=== PATIENT | female | born 1945 | race Caucasian/White ===

== ENCOUNTER → 2017-08-08 | Outpatient (CLI) | payer OTHER, MEDICAID | LOC: FIMAGING 12:47 | PROVIDERS: ATTEND Family Medicine | DX: Z12.31 Encounter for screening mammogram for malignant neoplasm of breast (principal); Z80.3 Family history of malignant neoplasm of breast | CPT/HCPCS: G0202 ==

== ENCOUNTER → 2018-03-06 | Outpatient (CLI) | payer OTHER, MEDICAID | LOC: CIMAGING 11:32 | PROVIDERS: ATTEND Orthopaedic Surgery | DX: Z01.818 Encounter for other preprocedural examination (principal); M17.11 Unilateral primary osteoarthritis, right knee ==

== ENCOUNTER 2018-04-05 06:34 | Observation (INO) | payer OTHER, MEDICAID ==
[~2018-04-05 06:34] MED LIST: ROPIVACAINE 0.2% 80 MG, EPINEPHrine 0.2 MG, KETOROLAC TROMETHAMINE 30 MG in SYRINGE 0 ML IU ONE; TRANEXAMIC ACID 3,000 MG in NS (SYRINGE) 50 ML IRR ONE
--- NOTE | 2018-04-05 07:09 | PDHPUP ---
History & Physical Update H&P update statement: This history and physical update is based on an assessment of the patient which was completed after admission or registration (within 24 hours), but prior to the surgery/procedure. H&P update: H&P reviewed & patient examined, no change in patient's condition since H&P completed
[2018-04-05] MEDS ORDERED: DEXAMETHASONE 4 MG/ML VIAL IVP ONE (07:11)
[2018-04-05] MEDS ORDERED: FAMOTIDINE 20 MG TAB PO ONE (07:11)
[2018-04-05] MEDS ORDERED: ceFAZolin 2 GM/DEXTROSE 100 ML IV ONE (07:11)
[2018-04-05] MEDS ORDERED: ACETAMINOPHEN 325 MG TAB PO ONE (07:11)
[2018-04-05] MEDS ORDERED: LIDOCAINE 1% 2 ML INJ ID PRN (07:12)
[2018-04-05] MEDS ORDERED: LR 1,000 ML IV ONE (07:12)
[2018-04-05] MEDS ORDERED: TRANEXAMIC ACID 3,000 MG/50 ML BAG IRR ONE (08:09)
[2018-04-05] MEDS ORDERED: PROPOFOL/EMULSION 500 MG/50 ML BOTTLE IV ONE (09:28)
[2018-04-05] MEDS ORDERED: MIDAZOLAM 2 MG/2 ML VIAL ONE (09:28)
[2018-04-05] MEDS ORDERED: fentaNYL 100 MCG/2 ML INJ ONE (09:28)
[2018-04-05] MEDS ORDERED: METOCLOPRAMIDE 10 MG/2 ML VIAL IVP PRN (09:58)
[2018-04-05] MEDS ORDERED: ONDANSETRON DISINTEGRATING 4 MG TAB PO PRN (09:58)
[2018-04-05] MEDS ORDERED: TEMAZEPAM 15 MG CAP PO PRN (09:58)
[2018-04-05] MEDS ORDERED: LACTULOSE 20 GM/30 ML UDCUP PO PRN (09:58)
[2018-04-05] MEDS ORDERED: PROMETHAZINE HCL 25 MG/ML INJ IVP PRN ×2 (09:58→11:43)
[2018-04-05] MEDS ORDERED: PROMETHAZINE HCL 25 MG SUPPR PR PRN (09:58)
[2018-04-05] MEDS ORDERED: BISACODYL 10 MG SUPP PR PRN (09:58)
[2018-04-05] MEDS ORDERED: POLYETHYLENE GLYCOL 3350 17 GM PKT PO PRN (09:58)
[2018-04-05] MEDS ORDERED: MAGNESIUM HYDROXIDE 30 ML UDCUP PO PRN (09:58)
[2018-04-05] MEDS ORDERED: ONDANSETRON 4 MG/2 ML VIAL IVP PRN ×2 (09:58→11:43)
[2018-04-05] MEDS ORDERED: DIPHENOXYLATE/ATROPINE LOMOTIL 1 TAB PO PRN (09:58)
[2018-04-05] MEDS ORDERED: diphenhydrAMINE 25 MG CAP PO PRN (09:58)
--- NOTE | 2018-04-05 09:59 | PDANEPAE ---
ANE Past Medical History - Cardiovascular History Hx Hypertension: Yes Hx Arrhythmias: No Hx Chest Pain: No Hx Coronary Artery / Peripheral Vascular Disease: No Hx CHF / Valvular Disease: No Hx Palpitations: No Cardiovascular History Comment: HYPERLIPIDEMIA - Pulmonary History Hx COPD: No Hx Asthma/Reactive Airway Disease: No Hx Recent Upper Respiratory Infection: No Hx Oxygen in Use at Home: No Hx Sleep Apnea: No Sleep Apnea Screening Result - Last Documented: Negative - Neurologic History Hx Cerebrovascular Accident: No Hx Seizures: No Hx Dementia: No - Endocrine History Hx Diabetes: No - Renal History Hx Renal Disorders: No Renal History Comment: URGE INCONT. PREV KIDNEY STONE - Liver History Hx Hepatic Disorders: Yes Hepatic History Comment: CHOLECYSTECTOMY - Neurological & Psychiatric Hx Hx Neurological and Psychiatric Disorders: Yes Neurological / Psychiatric History Comment: DEPRESSION - Cancer History Hx Cancer: Yes Cancer History Comment: CERVIX - Congenital Disorder History Hx Congenital Disorders: No - GI History Hx Gastrointestinal Disorders: Yes Gastrointestinal History Comment: GERD - Other Health History Other Health History: NEG - Chronic Pain History Chronic Pain: Yes (ARTHRITIS KNEES & HANDS) - Surgical History Prior Surgeries: COLON RESECTION. COLOSTOMY. CHOLECYSTECTOMY ANE Review of Systems Review of Systems: - Exercise capacity METS (RN): 4 METS ANE Patient History - Allergies Allergies/Adverse Reactions: codeine Allergy (Verified 05/24/16 11:39) Itching morphine Allergy (Verified 05/24/16 11:39) Itching oxycodone Allergy (Verified 05/24/16 11:39) Itching - Home Medications Home Medications: Diclofenac Sodium 1% [Voltaren Gel (*)] 1 [place] TP 05/24/16 [Last Taken 05/28/16] Dilaudid 8 mg 05/24/16 [Last Taken 05/25/16 04:00] Duragesic 50 MCG Patch (*) 05/24/16 [Last Taken 06/02/16] FLUoxetine [Prozac 20 MG (*)] 20 mg PO DAILY 05/24/16 [Last Taken 06/02/16] Famotidine [Pepcid 20 MG (*)] 20 mg PO DAILY 05/24/16 [Last Taken 05/28/16] Herbals/Supplements -Info Only 1 ea PO DAILY 05/24/16 [Last Taken 05/28/16] LORazepam [Lorazepam] 0.5 - 1 mg PO HS PRN 05/24/16 [Last Taken 05/28/16] Lisinopril [Zestril 20 mg (*)] 20 mg PO DAILY 05/24/16 [Last Taken 06/03/16] Oxybutynin Chloride [Ditropan 5mg (RX)] 5 mg PO QID 05/24/16 [Last Taken ] Simvastatin [Zocor] 40 mg PO HS 05/24/16 [Last Taken 05/28/16] celeCOXIB [Celebrex (*)] 200 mg PO DAILY PRN 05/24/16 [Last Taken 05/28/16] Estradiol [Estrace Vaginal (*)] 1 [place] VG TUTHSA@21 02/24/18 [Last Taken Unknown] - NPO status NPO Since - Liquids (Date): 04/05/18 NPO Since - Liquids (Time): 07:33 NPO Since - Solids (Date): 04/04/18 NPO Since - Solids (Time): 21:00 - Smoking Hx Smoking Status: Former smoker - Family Anes Hx Family Hx Anesthesia Complications: NEG ANE Labs/Vital Signs - Vital Signs Blood Pressure: 197/96 Heart Rate: 72 Respiratory Rate: 16 O2 Sat (%): 94 Height: 146.69 cm Weight: 61.235 kg ANE Physical Exam - Airway Mallampati Score: Class 2 - ASA Status ASA Status: II ANE Anesthesia Plan Anesthesia Plan: spinal Urgent/Emergent Case: Divya ta completed preop but documented later for safe timely pt care
[2018-04-05] MEDS ORDERED: LR 1,000 ML IV SCH (10:00)
--- NOTE | 2018-04-05 10:50 | POSTOPPROG ---
Post Op Note Date of Operation: 04/05/18 Surgeon: Efe Miranda Irs Agent: monique miranda Anesthesiologist: dr. abreu Anesthesia: Spinal Pre-op Diagnosis: right knee OA` Post-op Diagnosis: same Indication: right knee pain Procedure: R TKA robot assisted, computer sathish and sensor assisted Findings: severe knee OA Inf/Abcess present in the surg proc area at time of surgery?: No EBL: 50-100
[2018-04-05] MEDS ORDERED: HYDROmorphONE/DILAUDID 1 MG/ML INJ IVP PRN (11:43)
[2018-04-05] MEDS ORDERED: LR 500 ML IV PRN (11:43)
[2018-04-05] MEDS ORDERED: fentaNYL 100 MCG/2 ML INJ IVP PRN (11:43)
[2018-04-05] MEDS ORDERED: NALOXONE HCL 0.4 MG/ML INJ IVP PRN (11:43)
--- NOTE | 2018-04-05 11:46 | POSTANESTH ---
Post Anesthetic Evaluation Cardiovascular Status: Normal, Stable Respiratory Status: Normal, Stable Level of Consciousness/Mental Status: Can Participate in Eval Pain Control: Adequate, Prn Tx Ordered Nausea/Vomiting Control: Adequate, Prn Tx Ordered Complications Possibly Related to Anesthesia: None Noted
[2018-04-05] MEDS: ACETAMINOPHEN 325 MG TAB PO SCH ×3 (13:06→22:52)
[2018-04-05] MEDS ORDERED: LORazepam 0.5 MG TAB PO PRN (13:53)
[2018-04-05] MEDS: OXYBUTYNIN CHLORIDE 5 MG TAB PO SCH ×2 (15:54→22:53)
[2018-04-05] MEDS: ceFAZolin 2 GM/DEXTROSE 100 ML IV SCH ×2 (15:54→22:55)
[2018-04-05] MEDS: HYDROmorphONE/DILAUDID 4 MG TAB PO PRN ×3 (15:55→22:53)
[2018-04-05] MEDS ORDERED: OXYBUTYNIN 5 MG EXT REL TAB PO SCH (16:00)
[2018-04-05] MEDS ORDERED: OXYBUTYNIN CHLORIDE 5 MG TAB PO SCH (16:00)
[2018-04-05] MEDS: ASPIRIN 81 MG CHEWABLE TAB PO SCH (20:05)
[2018-04-05] MEDS: CYCLOBENZAPRINE 10 MG TAB PO PRN (20:05)
[2018-04-05] MEDS: FAMOTIDINE 20 MG TAB PO SCH (20:06)
[2018-04-05] MEDS: TOLTERODINE TARTRATE 1 MG TAB PO SCH (20:06)
[2018-04-05] MEDS: SENNOSIDES/DOCUSATE SODIUM TAB PO SCH (20:07)
--- NOTE | 2018-04-05 20:54 | GOP ---
[f rep st] OPERATIVE REPORT DATE OF OPERATION: 04/05/2018 SURGEON: Eldon Harmon MD NEUROSURGEON: Eldon Harmon MD. GLUE SPECIALTY SUPERVISOR: EAGLE [employer]os. ANESTHESIA: Spinal. PREOPERATIVE DIAGNOSIS: Right knee osteoarthritis. POSTOPERATIVE DIAGNOSIS: Right knee osteoarthritis. PROCEDURE PERFORMED: Right total knee arthroplasty with computer navigation, robotic assist. FINDINGS: Pathology: Severe medial patellofemoral osteoarthritis. ESTIMATED BLOOD LOSS: 30 cc. INDICATIONS: The patient is a 72-year-old female with severe and progressive pain and deformity of the Right knee unresponsive to conservative care. The risks and benefits of surgical intervention were explained in detail. DESCRIPTION OF PROCEDURE: The patient was brought to the operative room and placed on the table in the supine position. Spinal anesthesia was induced without difficulty. A pneumatic tourniquet was applied about the right proximal thigh, and the leg was prepped and draped in a sterile fashion. The leg barron was applied. After exsanguination by elevation the tourniquet was inflated to 250 mmHg. Incision was made anterior medial from the tibial tuberosity to a point 2 cm proximal to the superior pole of the patella. Medial parapatellar arthrotomy was carried out from the superior pole of the patella and posteriorly in line with the fibers of the Type II VMO. The medial collateral ligament was elevated and the infrapatellar fat pad was resected. The patella was everted and the articular surface was excised. A 29 mm patellar button was placed. Attention was turned first to the distal aspect of the femur. After exposure of the femur, 2 half pins were placed for fixation of the femoral array. In a similar fashion, 2 pins were placed anteromedial on the tibia for fixation of the tibial array. External land marking and registration of the hip center was performed without difficulty. Internal femoral and tibial registration was carried out without difficulty and the femoral and tibial checkpoints were placed and verified for accuracy. Attention was turned to the femur. The foot print for the size 2 femoral component was cut with the saw using the [employer] robotic system and verified for accuracy against the CT based plan. In a similar fashion, the saw was used to cut the footprint for the size 2 tibial component using the [employer] system and verified for accuracy against the CT based plan. The tibial articular surface was excised without difficulty. The knee was extended and the remnants of the medial and lateral meniscus were excised. The posterior capsule was injected with ropivacaine, epinephrine and Toradol. A size 2 x 9 mm polyethylene tibial tray was positioned. Trial reduction was then carried out. There was excellent range of motion, alignment, and stability using the permanent 9 mm polyethylene. All trials were then removed. The joint was thoroughly irrigated and carefully dried. Three press-fit components were implanted. The permanent 9 mm polyethylene was placed without difficulty. The tourniquet was deflated and all bleeders were coagulated. The wound was thoroughly irrigated and closed using interrupted sutures of 2-0 Vicryl for the joint capsule. The subcu was closed with 3-0 Vicryl and the skin with 4-0 Monocryl. Dermabond and Steri-Strips were applied followed by a compressive dressing. The patient was then moved from the operating room to the recovery room in good condition, having tolerated the procedure well. /[id number]/MODL MTDD
[2018-04-05] MEDS ORDERED: ATORVASTATIN CALCIUM 40 MG TAB PO SCH (21:00)
[2018-04-06] MEDS: HYDROmorphONE/DILAUDID 4 MG TAB PO PRN ×2 (02:54→08:27)
[2018-04-06] MEDS: ACETAMINOPHEN 325 MG TAB PO SCH (05:39)
[2018-04-06] MEDS: CYCLOBENZAPRINE 10 MG TAB PO PRN (05:43)
[2018-04-06] MEDS: TOLTERODINE TARTRATE 1 MG TAB PO SCH (08:24)
[2018-04-06] MEDS: OXYBUTYNIN CHLORIDE 5 MG TAB PO SCH (08:26)
[2018-04-06] MEDS: ASPIRIN 81 MG CHEWABLE TAB PO SCH (08:27)
[2018-04-06] MEDS: FAMOTIDINE 20 MG TAB PO SCH (08:27)
[2018-04-06] MEDS: SENNOSIDES/DOCUSATE SODIUM TAB PO SCH (08:36)
--- NOTE | 2018-04-06 08:48 | SOAPPROG ---
SOAP Progress Note Assessment/Plan: Assessment: Patient is doing well POD 1 s/p R TKA Pain management: pain is well controlled on oral pain meds. VTE ppx: recommend aspirin 81 mg BID for 4 weeks, cont TAYLOR and SCDs Anemia: level is expected initially postop. Asymptomatic. Continue to monitor D/c planning: d/c to home today pending release from PT Plan: 04/06/18 08:47 Subjective: pain is well controlled, denies SOB ,chest pain and N/V. Objective: Vital Signs Temp Pulse Resp BP Pulse Ox 36.8 C 61 16 180/92 H 94 04/06/18 07:54 04/06/18 07:54 04/06/18 07:54 04/06/18 08:27 04/06/18 07:54 Laboratory Results 04/06/18 04:52 04/05/18 04/06/18 04/07/18 05:59 05:59 05:59 Intake Total 1875 Output Total 1530 Balance 345 RLE: incision dressing is clean and dry, NVI, +pf/df ICD10 Worksheet Patient Problems: Problems Problem Status Onset Primary localized osteoarthritis of right knee Acute
[2018-04-06] MEDS ORDERED: ATORVASTATIN CALCIUM 20 MG TAB PO SCH (09:00)
[2018-04-06] MEDS ORDERED: LISINOPRIL 20 MG TAB PO SCH ×2 (09:00)
[2018-04-06] MEDS ORDERED: FLUoxetine 20 MG CAP PO SCH (09:00)
[2018-04-06 10:37] VITALS: BP 148/86
--- NOTE | 2018-04-06 15:30 | GDS ---
[f rep st] DISCHARGE SUMMARY ADMISSION DIAGNOSIS: Right knee osteoarthritis. DISCHARGE DIAGNOSIS: Right knee osteoarthritis. PROCEDURE: Right total knee arthroplasty, robotic assisted. Computer navigation, sensor assisted. VTE PROPHYLAXIS: Recommend aspirin 81 mg twice daily for 4 weeks. BRIEF DESCRIPTION OF HOSPITAL STAY: Patient was admitted for an elective joint arthroplasty. The pa isaac tolerated the procedure well and has passed physical therapy. The patient was given appropriat e antibiotic prophylaxis and venous thromboembolism prophylaxis. The patient's pain was well control led on oral pain medication, patient was holding down food, and had urinated. Decision was made to d ischarge the patient. The patient was given post-operative prescriptions pre-operatively. PLAN: To follow up as scheduled with Dr. Harmon's office on April 27 at 1:15. /[id number]/MODL
[2018-04-08] MEDS ORDERED: fentaNYL 50 MCG PATCH TD SCH (08:00)
== END 2018-04-06 11:21 | disposition home or self-care (01) ==
LOC: F3E 06:34 → F3N 07:31
PROVIDERS: ADMIT Orthopaedic Surgery; ATTEND Orthopaedic Surgery
PROC: 0SRC0JZ Replacement of Right Knee Joint with Synthetic Substitute, Open Approach (ICD-10-PCS; principal; 2018-04-05 09:15)
PROC: 8E0YXBZ Computer Assisted Procedure of Lower Extremity (ICD-10-PCS; principal; 2018-04-05 09:15)
DX: M17.11 Unilateral primary osteoarthritis, right knee (principal); D62 Acute posthemorrhagic anemia; I10 Essential (primary) hypertension; E78.5 Hyperlipidemia, unspecified; F32.9 Major depressive disorder, single episode, unspecified; K21.9 Gastro-esophageal reflux disease without esophagitis; Z87.891 Personal history of nicotine dependence; Z87.442 Personal history of urinary calculi
CPT/HCPCS: 20985; 27447; 73560; 88311; 97116; 97161; 97165; 97530; C1776; G8978; G8979; G8980; G8987; G8988; G8989; J0171; J0690; J1100; J1885; J2250; J2704; J2795; J3010

== ENCOUNTER → 2018-08-10 | Outpatient (CLI) | payer OTHER | LOC: FIMAGING 13:18 | PROVIDERS: ATTEND Family Medicine | DX: Z12.31 Encounter for screening mammogram for malignant neoplasm of breast (principal); Z80.3 Family history of malignant neoplasm of breast ==